=== PATIENT | female | born 2000 | race Hispanic/Latino ===

== ENCOUNTER 2019-01-03 20:43 | Emergency (ER) | payer SELFPAY ==
--- NOTE | 2019-01-03 21:21 | ED.PDOC ---
History of Present Illness - General Chief Complaint: Fever Time Seen by Provider: 01/03/19 21:14 Source: patient Exam Limitations: no limitations - History of Present Illness Initial Comments: Patient presents with a fever and sore throat for 24 hours. She also has had bilateral clear nasal exudates. She says she has neck tenderness in the front. No neck stiffness nor photophobia. No ear pain. She works at a daycare. No other complaints. Timing/Duration: 24 hours Severity: moderate Improving Factors: nothing Worsening Factors: nothing Associated Symptoms: other - as in HPI Allergies/Adverse Reactions: Allergies NO KNOWN ALLERGY Allergy (Verified 01/03/19 21:13) Review of Systems - Review of Systems Constitutional: States: see HPI EENTM: States: see HPI Respiratory: States: no symptoms reported, other - denies cough Cardiology: States: no symptoms reported Gastrointestinal/Abdominal: States: other - no N/V/D Genitourinary: States: no symptoms reported Skin: States: no symptoms reported Neurological: States: no symptoms reported Endocrine: States: no symptoms reported Hematologic/Lymphatic: States: no symptoms reported Physical Exam - Physical Exam General Appearance: Alert Eye Exam: bilateral normal Ears, Nose, Throat: pharyngeal erythema, other - bilateral clear nasal exudates. anterolateral throat is mildly TTP. No palpable LAD. Neck: full range of motion, supple Respiratory: lungs clear, normal breath sounds Cardiovascular/Chest: normal peripheral pulses, regular rate, rhythm Gastrointestinal/Abdominal: normal bowel sounds, non tender, soft, other - no hepatosplenomegaly Progress - Progress Progress: 01/03/19 21:39 Rapid strep positive. Patient received Bicillin LA 1.2 million units IM x one. Care instructions given. E.R. warnings given. Questions were elicited and answered. Patient voiced understanding and agreement with the plan. Departure - Departure Clinical Impression: Streptococcal sore throat Disposition: Discharge to Home or Self Care Condition: Good Departure Forms: ED Discharge - Pt. Copy, Patient Portal Self Enrollment Instructions: Strep Throat (DC) Diet: resume usual diet Activity: increase activity as tolerated Referrals: UNKNOWN,PHYSICIAN [Primary Care Provider] - 1-2 Weeks Additional Instructions: You will be contagious until your temperature has been less than 100.4 for 24 hours, without the use of fever medications. Return to the E.R. for new symptoms, worsening symptoms, or if fever has not resolved in three days.
[2019-01-03 21:42] VITALS: O2SAT 98
[2019-01-03] MEDS: PENICILLIN BENZATHINE 1.2 MU 1.2 MU/2 ML SYG IM ONE (21:51)
[2019-01-03 22:20] VITALS: BP 122/76; TEMP 100.5
== END 2019-01-03 22:15 | disposition home or self-care (01) ==
LOC: ER 20:43
DX: J02.0 Streptococcal pharyngitis (principal)
CPT/HCPCS: 87880; J0561